=== PATIENT | female | born 1995 | race Caucasian/White ===

== ENCOUNTER 2018-07-14 20:10 | Emergency (ER) | payer BC, OTHER ==
[2018-07-14 21:00] LABS: #Eosinphils 0.1 thou/uL (0.0-0.7); #Lymphocytes 0.9 thou/uL (1.20-3.40); #Monocytes 0.4 thou/uL (0.11-0.59); #Neutrophils 7.5 thou/uL (1.40-6.50); %Basophils 0.4 % (0.0-1.0); %Eosinophils 0.9 % (0.0-10.0); %Lymphocytes 10.2 % (21.0-51.0); %Monocytes 4.5 % (0.0-10.0); Hemoglobin 14.6 g/dL (12.0-16.0); Mean Corpuscular HGB CONC 34.9 g/dL (32.0-36.0); Mean Corpuscular Hemoglobin 31.5 pg (27.0-31.0); Mean Corpuscular Volume 90.3 fL (78.0-98.0); Mean Platelet Volume 7.7 fL (7.4-10.4); Platelet Count 244 thou/uL (130-400); RBC Distribution Width 10.9 % (11.5-14.5); Red Blood Cell (RBC) Count 4.63 mill/uL (4.20-5.40)
[2018-07-14] MEDS ORDERED: Promethazine HCl 25 MG/ML VIAL ONE (21:17)
[2018-07-14] MEDS ORDERED: Ondansetron PF 4 MG/2 ML Vial ONE (21:17)
[2018-07-14 21:28] LABS: ALT (SGPT) 13 U/L (8-55); AST (SGOT) 16 U/L (5-34); Albumin 4.2 g/dL (3.5-5.0); Alkaline Phosphatase 59 U/L (40-150); Anion Gap 16 mmol/L (10-20); BUN (Urea Nitrogen) 5 mg/dL (7.0-18.7); Bilirubin, Total 0.9 mg/dL (0.2-1.2); Calc. Creatinine Clearance 0 mL/min (70-130); Calcium 9.8 mg/dL (7.8-10.44); Carbon Dioxide 22 mmol/L (22-29); Chloride 103 mmol/L (98-107); Estimated GFR-MDRD Greater than 90; Globulin 3.7 g/dL (2.4-3.5); Glucose 100 mg/dL (70-105); Potassium 3.5 mmol/L (3.5-5.1); Protein, Total 7.9 g/dL (6.0-8.3); Sodium 137 mmol/L (136-145)
[2018-07-14 22:52] LABS: Bilirubin Negative (Negative); Blood, Urine Negative (Negative); Clarity CLEAR (Clear); Glucose, Urine (Dipstick) Negative (Negative); Leukocyte Trace (Negative); Nitrite Negative (Negative); Protein, Urine (Dipstick) Negative (Neg-Trace); Specific Gravity, Urine 1.025 (1.002-1.036); Urobilinogen 0.2 mg/dL (0.2-1.0); pH, Urine 5.5 (5.0-9.0)
[2018-07-14 22:54] LABS: Bacteria/HPF 1+ HPF (None Seen); Hyaline Casts/LPF 7-10 HYALINE CAST LPF (0-3 Hyaline); Pathc Cast-AUWi Flag 1.59 (0-2.49)
[2018-07-14] MEDS ORDERED: cefTRIAXone\\ROCEPHIN 1 GM VIAL ONE (23:36)
== END 2018-07-15 00:11 | disposition home or self-care (01) ==
LOC: ERS 20:10
DX: O21.9 Vomiting of pregnancy, unspecified (principal); O23.42 Unspecified infection of urinary tract in pregnancy, second trimester; Z3A.14 14 weeks gestation of pregnancy
CPT/HCPCS: 36415; 80053; 81003; 81015; 84702; 85025; 96361; 96365; 96375; J0696; J2405; J2550

== ENCOUNTER 2019-01-06 16:07 | Inpatient (IN) | payer BC ==
[2019-01-06 23:31] VITALS: BMI 27.1
[2019-01-07] MEDS ORDERED: NS w/ Oxytocin 10 units 500 ML IV SCH (00:01)
[2019-01-07] MEDS ORDERED: HYDROcodone/Acetaminophen 5/325 mg Tablet PO PRN ×2 (00:01)
[2019-01-07] MEDS ORDERED: Ondansetron PF 4 MG/2 ML Vial IVP PRN ×2 (00:01→10:42)
[2019-01-07] MEDS ORDERED: Acetaminophen 500 MG TAB PO PRN (00:01)
[2019-01-07] MEDS ORDERED: Docusate 100 MG CAP PO PRN (00:01)
[2019-01-07] MEDS ORDERED: Lidocaine 1% (PF) 30 ML VIAL SC PRN (00:01)
[2019-01-07] MEDS ORDERED: Misoprostol 200 MCG TAB PR PRN (00:01)
[2019-01-07] MEDS ORDERED: Butorphanol Tartrate 1 MG/ML VIAL SLOW IVP PRN (00:01)
[2019-01-07] MEDS ORDERED: Diphenoxylate HCl/Atropine Tablet PO PRN ×2 (00:01)
[2019-01-07] MEDS ORDERED: Zolpidem Tartrate 5 MG TAB PO PRN (00:01)
[2019-01-07] MEDS ORDERED: Ibuprofen 800 MG TAB PO PRN (00:01)
[2019-01-07] MEDS ORDERED: Promethazine HCl 25 MG/ML VIAL IM PRN ×2 (00:01→10:42)
[2019-01-07] MEDS ORDERED: NS / Oxytocin 40 units/1000ml 1,000 ML IV PRN (00:01)
[2019-01-07 00:35] LABS: Hemoglobin 11.1 g/dL (12.0-16.0); Mean Corpuscular HGB CONC 33.4 g/dL (32.0-36.0); Mean Corpuscular Hemoglobin 28.6 pg (27.0-31.0); Mean Corpuscular Volume 85.5 fL (78.0-98.0); Mean Platelet Volume 8.7 fL (7.4-10.4); Platelet Count 199 thou/uL (130-400); RBC Distribution Width 12.2 % (11.5-14.5); Red Blood Cell (RBC) Count 3.88 mill/uL (4.20-5.40); White Blood Cell (WBC) Count 8.6 thou/uL (4.8-10.8)
[2019-01-07] MEDS: Misoprostol 100 MCG TAB VAG SCH ×5 (00:36→22:02)
[2019-01-07] MEDS: Lactated Ringer's 1,000 ML IV SCH ×4 (00:36→12:29)
[2019-01-07 01:16] LABS: HBSAg Index 0.25 S/CO (0-0.99); Hep B Surf Ag Non-Reactive S/CO (NonReactive); Syphilis Antibody Nonreactive (Nonreactive); Syphilis Antibody Index 0.04 S/CO (<1.00 Non-Reactive)
[2019-01-07] MEDS ORDERED: Fentanyl 4 mcg/Bup 0.1% Cadd 100 ML ONE ×2 (10:11→16:26)
[2019-01-07] MEDS ORDERED: diphenhydrAMINE 50 MG/ML VIAL IVP PRN (10:42)
[2019-01-07] MEDS ORDERED: ePHEDrine/0.9% NaCl/PF SYRINGE 50 mg/10 ml SLOW IVP PRN (10:42)
[2019-01-07] MEDS ORDERED: Eucerin (Mineral Oil/Petrolatum,White) 30 gm Jar TOP PRN (10:42)
[2019-01-07] MEDS ORDERED: Lactated Ringer's 500 ML IV PRN (10:42)
[2019-01-07] MEDS ORDERED: Naloxone HCl 0.4 mg/ml Vial IVP PRN ×2 (10:42)
[2019-01-07] MEDS ORDERED: Fentanyl 4 mcg/Bupivacaine 0.1% Cassette 100 ML EPIDURAL SCH (10:45)
[2019-01-07] MEDS ORDERED: Communication Order-Pharmacy FS SCH (10:45)
[2019-01-07] MEDS ORDERED: Terbutaline Sulfate 1 MG/ML VIAL ONE (12:55)
[2019-01-07] MEDS: NS w/ Oxytocin 10 units 500 ML IV SCH (16:58)
[2019-01-07] MEDS ORDERED: Bupivacaine HCl 0.5%/Epinephrine 1:200,000/PF 30 ml Vial ONE (18:00)
[2019-01-07] MEDS ORDERED: Acetaminophen/Codeine 30-300mg Tablet PO PRN ×2 (21:50)
[2019-01-07] MEDS: Docusate Calcium (SURFAK) 240 MG CAP PO SCH (22:08)
[2019-01-07] MEDS: Ibuprofen 800 MG TAB PO SCH (22:09)
[2019-01-08] MEDS: Misoprostol 100 MCG TAB VAG SCH ×6 (00:03→22:06)
[2019-01-08] MEDS: NS w/ Oxytocin 10 units 500 ML IV SCH (00:04)
[2019-01-08] MEDS: Lactated Ringer's 1,000 ML IV SCH ×2 (00:04→15:21)
[2019-01-08] MEDS: Ibuprofen 800 MG TAB PO SCH ×3 (05:49→21:41)
[2019-01-08] MEDS: Docusate Calcium (SURFAK) 240 MG CAP PO SCH ×2 (08:50→21:41)
[2019-01-08] MEDS ORDERED: Benzocaine-Menthol 82.5 ML CAN TOP PRN (09:50)
[2019-01-09] MEDS: Lactated Ringer's 1,000 ML IV SCH ×2 (01:22→08:51)
[2019-01-09] MEDS: Misoprostol 100 MCG TAB VAG SCH ×5 (01:22→12:30)
[2019-01-09] MEDS: NS w/ Oxytocin 10 units 500 ML IV SCH (01:22)
[2019-01-09] MEDS: Acetaminophen 325 MG TAB PO PRN ×2 (01:27→11:51)
[2019-01-09] MEDS: Ibuprofen 800 MG TAB PO SCH (05:33)
[2019-01-09 07:44] VITALS: BP 123/70; TEMP 97.9
[2019-01-09] MEDS: Docusate Calcium (SURFAK) 240 MG CAP PO SCH (09:23)
== END 2019-01-09 13:35 | disposition home or self-care (01) | DRG 807 ==
LOC: L&D 22:48 → 3SW 01-07 21:09 → EDSTATUS 01-08 16:06
PROVIDERS: ADMIT Obstetrics & Gynecology; ATTEND Obstetrics & Gynecology
PROC: 10D07Z3 Extraction of Products of Conception, Low Forceps, Via Natural or Artificial Opening (ICD-10-PCS; principal; 2019-01-07)
PROC: 0KQM0ZZ Repair Perineum Muscle, Open Approach (ICD-10-PCS; 2019-01-07)
PROC: 3E0P7VZ Introduction of Hormone into Female Reproductive, Via Natural or Artificial Opening (ICD-10-PCS; 2019-01-07)
DX: O69.81X0 Labor and delivery complicated by cord around neck, without compression, not applicable or unspecified (principal); Z37.0 Single live birth; O70.1 Second degree perineal laceration during delivery; Z3A.39 39 weeks gestation of pregnancy
CPT/HCPCS: 36415; 51702; 85027; 86780; 86850; 86900; 86901; 87340; J0670; J2001; J2405; J2590; J3105